=== PATIENT | male | born 1990 | race African-American/Black ===

== ENCOUNTER 2017-08-29 22:00 | Emergency (ER) | payer OTHER ==
[~2017-08-29] VITALS: Ht 182.9 cm; Wt 133.4 kg
[2017-08-29 22:01] VITALS: Ht 182.9 cm; Wt 133.4 kg
[2017-08-29] MEDS ORDERED: AZIT250T94 PO (23:25)
[2017-08-29] MEDS ORDERED: CIPR7.5D4 LEFT EAR (23:25)
[2017-08-29] MEDS ORDERED: INSU100C SQ ×2 (23:26→23:28)
[2017-08-29] MEDS ORDERED: LANT3I SC (23:26)
--- NOTE | 2017-08-29 23:33 | ERD ---
ER Documentation Chief Complaint Chief Complaint left ear pain x 2 days HPI 19-year-old male who has a left ear pain and discharge for the last 2 days. He has had a cough and congestion. He has a history of insulin-dependent diabetes is been out of insulin for 2 days. ROS All systems reviewed and are negative except as per history of present illness. Medications Home Meds Active Scripts Insulin Lispro (Humalog) 100 Unit/1 Ml Cartridge, 10 UNIT SQ qac for 30 Days vial Prov:KALEB MARTINEZ MD 08/29/17 Insulin Glargine* (Lantus*) 100 Unit/Ml Soln, 10 UNIT SC QHS for 30 Days, #1 VIAL Prov:KALEB MARTINEZ MD 08/29/17 Azithromycin* (Zithromax*) 250 Mg Tablet, 250 MG PO .ZPACK DIRECTED, #6 TAB TAKE 500 MG (2 TABS) THE FIRST DAY THEN 250 MG (1 TAB) DAYS 2-5 Prov:KALEB MARTINEZ MD 08/29/17 Ciprofloxacin Hcl/Dexameth (Ciprodex Otic Suspension) 7.5 Ml Drops.susp, 4 DROP LEFT EAR BID for 7 Days, EA Prov:KALEB MARTINEZ MD 08/29/17 Allergies Allergies: Coded Allergies: No Known Allergy (Unverified , 08/29/17) PMhx/Soc Medical and Surgical Hx: pt denies Surgical Hx Hx Miscellaneous Medical Probl: Yes (DM) Hx Alcohol Use: No Hx Substance Use: No Hx Tobacco Use: No Smoking Status: Never smoker Physical Exam Vitals Vital Signs Date Time Temp Pulse Resp B/P Pulse Ox O2 Delivery O2 Flow Rate FiO2 08/29/17 22:01 97.8 106 20 157/69 99 Physical Exam Const: [], Not ill-appearing. Head: Atraumatic Eyes: Normal Conjunctiva ENT: Normal External Ears, Nose and Mouth. His left TM which appears to be perforated with yellow discharge in the canal. There is no pain with passive range of motion there is no mastoid tenderness. Neck: Full range of motion..~ No meningismus. Resp: Clear to auscultation bilaterally Cardio: Regular rate and rhythm, no murmurs Abd: Soft, non tender, non distended. Normal bowel sounds Skin: No petechiae or rashes Back: No midline or flank tenderness Ext: No cyanosis, or edema Neur: Awake and alert Psych: Normal Mood and Affect Results 24 hrs Laboratory Tests Test 08/29/17 23:19 Bedside Glucose 189mg/dL [facility] Accu-Chek is 189. Patient presents with signs and symptoms of left otitis media with perforation. Patient has no signs or symptoms of acute illness to suggest ketoacidosis, abdominal pain, chest pain or shortness of breath. We treated with Zithromax, Cipro HC otic drops and refills of his insulin. Patient is advised to follow-up with primary doctor this week return to the ER for new or worsening symptoms such as fevers, vomiting, shortness breath, new worsening symptoms. Departure Diagnosis: Primary Impression: Left ear pain Condition: Stable Patient Instructions: DIABETES, General Info, Otitis Media, Abx Tx (Adult), Ruptured Tm, Infected (Adult) Additional Instructions: Drink fluids at home. Recheck for new or worsening symptoms or primary care doctor. KALEB MARTINEZ MD Aug 29, 2017 23:33
[2017-08-30 00:08] VITALS: BP 145/90; PULSE 91; RESP 18
[2017-08-30] MEDS ORDERED: IBUPROFEN 800 MG TAB ONE (00:14)
[2017-08-30] MEDS ORDERED: IBUPROFEN 800 MG TAB PO ONE (00:30)
== END 2017-08-30 00:09 | disposition home or self-care (01) ==
LOC: FTE 22:00
DX: H92.02 Otalgia, left ear (principal); E11.9 Type 2 diabetes mellitus without complications; Z79.4 Long term (current) use of insulin
CPT/HCPCS: 82962; Z7502; Z7610; 99284